=== PATIENT | male | born 2000 | race Caucasian/White ===

== ENCOUNTER 2024-01-17 12:45 | Outpatient (REF) | payer OTHER, SELFPAY ==
--- NOTE | 2024-01-17 14:23 | MHC.AU.ATI ---
Adult Audiological Evaluation- Tinnitus Date of Visit: 01/17/24 Binu scheduled an appointment after seeing ENT in [place]. He states the PA he saw recommended sound therapy for hyperacusis through our office. Records from ENT provided. Binu has a history of bilateral PE tubes as well as a right sided tympanoplasty on the right ear in [address] Badillo. He describes his current problem as sensitivity to sounds such as car keys, alarms, or squeaking sounds that cause a muffled sensation in his right ear. He finds that pushing below his ear (Eustachian tube?) improves the symptoms. He reports symptoms began in April 2022 after taking tobramycin for an eye infection. Binu states he has seen several ENT offices without making much progress. He feels these symptoms are limiting him as he actively avoids situations with noise due to fear his symptoms will worsen. He reports he has been taking Flonase for approximately 1 month without improvement. His hearing test performed 12/18/23 shows normal hearing with UCLs of 65 dBHL. We discussed hyperacusis and sound therapy, which he is very interested in pursuing, and he understood that unfortunately we do not have a dedicated sound therapy program. 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 We discussed contacting [facility] for evaluation of his symptoms, as there seems to be a middle ear/eustachian tube component. He reports he saw a physician at a large facility in September but cannot recall which one, where the recommendation was to wait and see , so I recommended checking back in as his symptoms have not improved. I also contacted [facility] in [place] to inquire about their TRT program, as Binu is very interested in sound therapy, and they confirmed they do see hyperacusis patients. Encouraged him to contact our office again if he needs help finding a provider or if there is anything we can help him with. Signature: Provider: Mason Solomon, [facility]
== END 2024-01-17 12:46 | disposition home or self-care (01) ==
LOC: HO.SH 12:45
PROVIDERS: PCP Internal Medicine; Visit Provider Physician Assistant Medical
DX: Z13.89 Encounter for screening for other disorder (principal)